=== PATIENT | male | born 1955 | race Caucasian/White ===

== ENCOUNTER 2021-03-03 16:07 | Inpatient (IN) | payer OTHER ==
[2021-03-03] VITALS (13 sets, daily range): BP systolic 112–217; BP diastolic 74–146
[~2021-03-03] VITALS: Ht 152.4 cm; Wt 94.8 kg
[2021-03-03 16:26] LABS: ABSOLUTE BASOPHILS 0.1 thou/uL (0.0-0.2); ABSOLUTE EOSINOPHILS 0.2 thou/uL (0.0-0.7); ABSOLUTE LYMPHOCYTES 2.4 thou/uL (0.8-5.3); ABSOLUTE MONOCYTES 0.8 thou/uL (0.0-1.2); ABSOLUTE NEUTROPHILS 5.9 thou/uL (1.6-8.1); BASOPHILS 1.1 %; EOSINOPHILS 1.7 %; HEMATOCRIT 49.4 % (42.0-52.0); HEMOGLOBIN 17.1 gm/dL (14.0-18.0); LYMPHOCYTES 25.4 %; MCH 33.4 pg (26.0-34.0); MCHC 34.7 g/dL (28.0-37.0); MCV 96.4 fL (80.0-100.0); MONOCYTES 8.9 %; MPV 8.6 fl. (7.2-11.1); NUCLEATED RBCS 0 /100WBC; PLATELET COUNT* 191 thou/uL (150-400); POLYS 62.9 %; RBC 5.12 mil/uL (4.50-6.00); RDW-CV 13.9 % (10.5-14.5); WBC 9.4 thou/uL (4.0-11.0)
[2021-03-03 16:36] LABS: CALCIUM 9.9 mg/dL (8.5-10.1); CREATININE 1.3 mg/dL (0.6-1.3); POTASSIUM 3.7 mmol/L (3.5-5.1)
[2021-03-03 16:51] LABS: ALBUMIN 3.9 g/dL (3.4-5.0); CK-MB MASS 8.8 ng/mL (<0.5-3.6); MAGNESIUM 2.2 mg/dL (1.8-2.4); TOTAL BILIRUBIN 0.8 mg/dL (<0.1-1.0); TOTAL PROTEIN 8.5 g/dL (6.4-8.2)
[2021-03-04] VITALS (7 sets, daily range): BP systolic 126–155; BP diastolic 65–97
--- NOTE | 2021-03-04 12:15 | CARD ---
[address] [address] CARDIAC CATH REPORT Name: DERRELL AGUIAR Room: [address] ADM IN .R.#: [id number] Admission: 03/03/21 Attend Phys: Derrell Whitaker MD Discharge: Date of : 59 Report #: [id number] THIS REPORT FOR: cc: FAM - No family physician/PCP FAM - No family physician/PCP Mateus Ayala MD [facility] ~ APPROVED REPORT Study performed: 03/03/2021 16:14:55 Patient Details Patient Status: ED Room #: The patient is a 65 year-old male Event Personnel Mateus Ayala Bulking Machine Operator, Derrell Whitaker Filter Cleaner, Adrienne Keith RN Supervisor Industrial Arts Education, Melissa Park, Lita Tse RN microsoft application developer Performed Left Heart Cath w/or w/o Coronaries [id number] [facility] [address] w/wo Plasty Addl BR OM [address] w/wo Plasty Single RCA 109274 Hemostasis w/ Angioseal Indication STEMI Risk Factors Obesity, Hypertension Admission/Lab Medications/Medications given during procedure Lidocaine Subcut 20 ml, Angiomax IV 15 ml, Angiomax IV 32.9 ml per hr, Atropine IV 0.5 ml, Adenosine IC 150 mcg, Aspirin PO 162 mg, Effient PO 60 mg Procedure Narrative The patient was brought emergently to the Cardiac Catheterization Laboratory and was prepped and draped in a sterile manner. The right femoral was infiltrated with 2% Lidocaine subcutaneous anesthesia. IV conscious sedation was used throughout procedure with appropriate monitoring and was performed in the presence of a registered nurse who was an independent trained observer other than the physician performing the procedure. A [place] 6 [place] [address] CARDIAC CATH REPORT Name: DERRELL AGUIAR Room: [address] IN [facility]#: [id number] Admission: 03/03/21 Attend Phys: Derrell Whitaker MD Discharge: Date of : 59 Report #: [id number] the right femoral artery. Coronary angiography was performed using coronary diagnostic catheters. The right coronary system was accessed and visualized with a Diagnostic JR4 6Fr catheter. The left coronary system was accessed and visualized with a Diagnostic JL4 6Fr catheter. The left ventricle was accessed and visualized with a Diagnostic JR4 6Fr catheter. Left ventricular/Aortic Valve gradient assessed via catheter pullback. Pre-demployment femoral angiogram was performed . Closure device was deployed with a 6 Fr Angioseal. The patient tolerated the procedure well and there were no complications associated with the procedure. There was no hematoma. Intraoperative Conscious Sedation Sedation start time: 1640 Case end Time: 1828 Fluoro Time: 42.6 minutes Dose: DAP 547207 cGycm2 6455.73 mGy Contrast Type and Amount: Visipaque 395 mL Coronary Angiography The patient's coronary anatomy is right dominant. Diagnostic Cath Left Main 0% narrowing LAD 90% irregular proximalmid LAD stenosis with collaterals from the LAD to the distal circumflex Circumflex 40% proximal narrowing with 100% chronic total occlusion of the proximal portion of the prominent first marginal branch of the circumflex Right Coronary Large dominant vessel with 90% distal stenosis and local thrombus at the site Hemodynamics The aortic pressure is 179/103 mmHg with a mean of 99 mmHg. The left ventricular pressure is 154/30 mmHg with a mean of mmHg. The left ventricular end diastolic pressure is 36 mmHg. There was no gradient across the aortic valve upon pullback. PCI Technique Lesion Anticoagulation was achieved with Angiomax. Percutaneous coronary intervention was performed on the distal right coronary artery. The lesion stenosis prior to intervention was 95% with NIKA 2 flow. A 6F JR 4.0 Guide Catheter was used to engage the Right ostium. A IG: BMW 190cm Interventional Guidewire was used to cross the [place] [address] CARDIAC CATH REPORT Name: DERRELL AGUIAR Room: [address] IN [facility]#: [id number] Admission: 03/03/21 Attend Phys: Derrell Whitaker MD Discharge: Date of : 59 Report #: [id number] A Balloon catheter Trek RX 2.5 X 12 was inserted and inflated up to 12.00atm for 13seconds. Additional Inflation: 14.00atm for 12seconds. Additional Inflation: 14.00atm for 13seconds. STENT DEPLOYMENT A drug-eluting stent [place] RX Stent 2.03V06ms was inserted and inflated up to 12.00atm for 12seconds. Additional Inflation: 14.00atm for 10seconds. Final angiography reveals 10 % stenosis with NIKA 3 flow. COMMENTS After PCI to the apparent culprit distal right coronary lesion, we elected to proceed with PCI of the circumflex as there was a question of concomitant acute occlusion of the first marginal branch. PCI Technique Lesion 2 Percutaneous Coronary Intervention was performed on the first obtuse marginal branch segment. The lesion stenosis prior to intervention was 100% with NIKA 0 flow. A 6F XB LAD 3.5 Guide Catheter was used to engage the Left ostium. A IG: BMW 300cm Interventional Guidewire was used to cross the lesion. Balloon Dilation A Balloon catheter Mini Trek RX 1.5 X 12 was inserted and inflated up to 14.00atm for 15seconds. Additional Inflation: 14.00atm for 8seconds. Additional Inflation: 14.00atm for 9seconds. A Balloon Catheter Mini Trek RX 2.0x 12 was inserted and inflated up to 8atm for 12 seconds. additional Inflation: 10atm for 7 seconds. Additional Inflation: 12 bipin for 8 seconds. Stent Deployment A drug-eluting stent [place] RX Stent 2.0X30mm was inserted and inflated up to 8.00atm for 16seconds. Additional Inflation: 8.00atm for 17seconds. A Drug Eluting Stent Robi RX Stent 2.0X12mm was inserted and inflated up to 8 bipin for 11 seconds. Additional Inflation: 12 bipin for 11 seconds. Additional Inflation: 14 bipin for 9 seconds. Final angiography reveals 10 % stenosis with NIKA 3 flow. Comments We were able to traverse the segment of chronic total occlusion of [facility] [address] [place] [address] CARDIAC CATH REPORT Name: COSMEDERRELL Cowart Room: [address] IN M.R.#: [id number] Admission: 03/03/21 Attend Phys: Derrell Whitaker MD Discharge: Date of : 59 Report #: [id number] the first marginal branch of the circumflex with a Fielder XT wire, utilizing a fine cross support catheter positioned just proximal to the AUTOMATIC FOLDER SEAMER. After advancing the fine cross catheter beyond the AUTOMATIC FOLDER SEAMER over the Fielder XT wire, the Fielder XT was replaced with a long BMW wire and we proceeded with sequential dilatations and deployment of 2 drug-eluting stents in this vessel. Conclusion 1. Acute inferior wall STEMI 2. Severe multivessel coronary artery disease characterized by the following: A 95% distal right coronary stenosis with local thrombus at the site and NIKA II flow to the distal vessel B 90% calcified irregular proximalmid LAD stenosis with collaterals from the distal LAD to the circumflex C 40% proximal circumflex narrowing with 100% chronic total occlusion of the first marginal branch of the circumflex with some collateral filling of the distal circumflex from the LAD 3. Moderate systemic systolic hypertension with severe elevation of left ventricular end-diastolic pressure at rest 4. Successful PCI with deployment of a drug-eluting stent at the site of 95% distal right coronary occlusion with 10% residual narrowing and NIKA-3 flow the distal vessel 5. Successful recanalization of the 100% chronic total occlusion of the first marginal branch of the nondominant circumflex with 10% residual narrowing and NIKA-3 flow to the distal circulation Recommendations Cardiac Risk Reduction Program Aggressive Medical Therapy Medications Administered Aspirin (any) Prasugrel Angiomax infusion was continued post procedurally [place] 6 [place] [address] CARDIAC CATH REPORT Name: DERRELL AGUIAR Sofya Room: [facility]- ADM IN M.R.#: [id number] Admission: 03/03/21 Attend Phys: Derrell Whitaker MD Discharge: Date of : 59 Report #: [id number] Diagnostic Cath Approved by: Derrell Whitaker MD Date/Time: 03/04/2021 12:10:29 <ELECTRONICALLY SIGNED> By: Mateus Ayala MD, FACC 03/04/21 1215 121 1215Mateus Ayala MD, FACC /INF
--- NOTE | 2021-03-04 12:27 | H ---
[address] [address] HISTORY AND PHYSICAL Name: COSMEDERRELL Sofya Room: [address] ADM IN M.R.#: [id number] Admission: 03/03/21 Attend Phys: Derrell Whitaker MD Discharge: Date of : 59 Report #: [id number] THIS REPORT FOR: cc: FAM - No family physician/PCP FAM - No family physician/PCP Mateus Ayala MD [facility] ~ ADMIT DATE: 03/03/2021 ADMITTING HISTORY AND PHYSICAL HISTORY OF PRESENT ILLNESS: The patient is a pleasant 65-year-old male with a history of hypertension. He developed chest discomfort last evening which waned. There was recrudescence today and he has had waxing and waning discomfort throughout the day. He ultimately sought assistance in the [facility] after transfer by EMS. EKG in the field suggested acute inferior injury and that is corroborated by the EKG in the ER, which reveals acute inferior wall injury. This patient has been admitted to bed after morphine. He has received aspirin and morphine. The only risk factor he describes is hypertension, which has gone untreated. He denies awareness of hyperlipidemia. Denies cigarette smoking. There is no known peripheral vascular disease or diabetes. PAST MEDICAL HISTORY: Remarkable for hypertension and mild weight excess. SOCIAL HISTORY: He is a nonsmoker. PHYSICAL EXAMINATION: GENERAL: Reveals a modestly distressed middle-aged male. VITAL SIGNS: Blood pressure is 140/70, pulse rate is 68, respirations are 18 per minute. NECK: Jugular venous pressure is normal. CHEST: Clear. CARDIAC: Reveals normal first and second heart sounds with a question of S4 gallop. ABDOMEN: Modestly obese and nontender. EXTREMITIES: Without edema with intact femoral, pedal and radial pulses. LABORATORY DATA: EKG reveals acute inferior wall injury with sinus rhythm. IMPRESSION: 1. Acute inferior wall ST segment elevation myocardial infarction. 2. Hypertension. 3. [place] [address] HISTORY AND PHYSICAL Name: DERRELL AGUIAR Room: [address]#: [id number] Admission: 03/03/21 Attend Phys: Derrell Whitaker MD Discharge: Date of : 59 Report #: [id number] RECOMMENDATIONS: Emergent cardiac catheterization with strong consideration of PCI. This has been discussed with the patient and we will plan to proceed emergently. Critical care time is 30 minutes from 13:55-14:25 on 03/03/2021. <ELECTRONICALLY SIGNED> By: Mateus Ayala MD, FACC 03/04/21 1227 1525 1604Jonic Ayala MD, FACC /nt
[2021-03-04 13:23] LABS: HEMATOCRIT 48.2 % (42.0-52.0); HEMOGLOBIN 16.7 gm/dL (14.0-18.0); MCH 33.6 pg (26.0-34.0); MCHC 34.6 g/dL (28.0-37.0); MCV 97.1 fL (80.0-100.0); MPV 8.9 fl. (7.2-11.1); RBC 4.96 mil/uL (4.50-6.00); RDW-CV 13.6 % (10.5-14.5); WBC 9.9 thou/uL (4.0-11.0)
[2021-03-04 13:33] LABS: ALBUMIN 3.1 g/dL (3.4-5.0); ALKALINE PHOSPHATASE 76 U/L (46-116); ANION GAP 9 mmol/L (7-16); BUN 13 mg/dL (7-18); CALCIUM 9.2 mg/dL (8.5-10.1); CHLORIDE 104 mmol/L (98-107); CHOLESTEROL 254 mg/dL (<200); CO2 24 mmol/L (21-32); CREATININE 1.1 mg/dL (0.6-1.3); GLUCOSE 132 mg/dL (70-99); HDL CHOLESTEROL 59 mg/dL (>40); LDL CHOLESTEROL 162 mg/dL (<100); POTASSIUM 3.7 mmol/L (3.5-5.1); SGOT 108 U/L (15-37); SGPT 40 U/L (30-65); SODIUM 137 mmol/L (136-145); TC:HDL 4.3 Ratio (Not establshd); TOTAL PROTEIN 7.2 g/dL (6.4-8.2); TRIGLYCERIDE 165 mg/dL (<150); VLDL 33 mg/dL (<40)
[2021-03-04 13:39] LABS: SERUM ASSESSMENT Clear
--- NOTE | 2021-03-04 15:19 | EKG ---
[place] [address] ELECTROCARDIOGRAM REPORT Name: DERRELL AGUIAR Room: [address] IN M.R.#: [id number] Admission: 03/03/21 Attend Phys: Derrell Whitaker, Discharge: Date of : 59 Date of Service: 03/03/21 1606 Report #: [id number] THIS REPORT FOR: //name// [facility] ED Test Date: 2021-03-03 Test Time: 16:06:40 Pat Name: DERRELL AGUIAR Department: Room: [facility] Gender: M Bottoming Room Supervisor: ROBI : 1955 Requested By: Silvino Laureano Order Number: [id number] MD: Derrell Whitaker Measurements Intervals [place] Rate: 81 P: 60 ND: 150 QRS: 54 QRSD: 113 T: 113 QT: 342 QTc: 397 Interpretive Statements Sinus rhythm Possible left atrial enlargement Inferior infarct, acute (RCA) Probable RV involvement, suggest recording right precordial leads No previous ECG available for comparison Electronically Signed On 03-04-2021 15:19:36 SKIN LIFTER [employer]ON by Derrell Whitaker [email or web address] <ELECTRONICALLY SIGNED> By: Derrell Whitaker MD, FACC 03/04/21 1519 1606 1606 Derrell Whitaker MD, FAC /EPI
--- NOTE | 2021-03-04 15:24 | EKG ---
[place] [address] ELECTROCARDIOGRAM REPORT Name: OSORIO AGUIAR Room: [address] IN .R.#: [id number] Admission: 03/03/21 Attend Phys: Osorio Whitaker, Discharge: Date of : 59 Date of Service: 03/04/21 0440 Report #: [id number] THIS REPORT FOR: //name// [facility] Test Date: 2021-03-04 Test Time: 04:40:03 Pat Name: OSORIO AGUIAR Department: Room: [facility] Gender: M Occasional Babysitter: [id number] : 1955 Requested By: Osorio Whitaker Order Number: [id number] Reading MD: Osorio Whitaker Measurements Intervals [place] Rate: 63 P: 35 CO: 152 QRS: 9 QRSD: 106 T: -65 QT: 486 QTc: 498 Interpretive Statements Sinus rhythm Inferior infarct, recent Lateral leads are also involved Baseline wander in lead(s) V2,V3 Compared to ECG 03/03/2021 16:06:40 No significant changes Electronically Signed On 03-04-2021 15:24:23 FEDERAL AGENT by Osorio Whitaker [email or web address] <ELECTRONICALLY SIGNED> By: Osorio Whitaker MD, FACC 03/04/21 1524 0440 0440 Osorio Whitaker MD, FACC /EPI
[2021-03-05 06:16] VITALS: BP 176/105
[2021-03-05 06:17] VITALS: BP 157/103
[2021-03-05 06:19] VITALS: BP 161/106
--- NOTE | 2021-03-05 11:09 | 2DMMODE ---
[place] [address] 2 D/M-MODE ECHOCARDIOGRAM Name: OSORIO AGUIAR Room: [address] IN [facility]#: [id number] Admission: 03/03/21 Attend Phys: Osorio Whitaker, Discharge: Date of : 59 Date of Service: 03/05/21 1108 Report #: [id number] THIS REPORT FOR: cc: FAM - No family physician/PCP FAM - No family physician/PCP Osorio Whitaker MD [facility] ~ APPROVED REPORT Study performed: 03/04/2021 16:17:17 EXAM: Comprehensive 2D, Doppler, and color-flow Echocardiogram Patient Location: In-Patient Room #: 008 Status: routine BSA: 2.08 HR: 68 bpm BP: 115/67 mmHg Rhythm: NSR Other Information Study Quality: Good Indications Acute MN 2D Dimensions IVSd: 11.31 (7-11mm) LVOT Diam: 20.80 (18-24mm) LVDd: 45.08 mm PWd: 13.19 (7-11mm) Ascending Ao: 36.32 (22-36mm) LVDs: 27.63 (25-40mm) Aortic Root: 34.76 mm Volumes Left Atrial Volume (Systole) LA ESV Index: 29.80 mL/m2 Aortic Valve AoV Peak Blayne.: 1.30 m/s AO Peak Gr.: 6.71 mmHg LVOT Max P.39 mmHg AO Mean Gr.: 3.97 mmHg LVOT Mean P.97 mmHg LVOT Max V: 1.05 m/s AO V2 VTI: 23.26 cm LVOT Mean V: 0.64 m/s MONIKA (VTI): 2.90 cm2 LVOT V1 VTI: 19.81 [place] [address] 2 D/M-MODE ECHOCARDIOGRAM Name: OSORIO AGUIAR Room: [address] IN ..#: [id number] Admission: 03/03/21 Attend Phys: Osorio Whitaker, Discharge: Date of : 59 Date of Service: 03/05/21 1108 Report #: [id number] Mitral Valve E/A Ratio: 1.32 MV Decel. Time: 157.47 ms MV E Max Blayne.: 0.91 m/s MV PHT: 45.67 ms MVA (PHT): 4.82 cm2 TDI E/Lateral E': 10.11 E/Medial E': 13.00 Medial E' Blayne.: 0.07 m/s Lateral E' Blayne.: 0.09 m/s Pulmonary Valve PV Peak Blayne.: 0.83 m/s PV Peak Gr.: 2.76 mmHg Left Ventricle The left ventricle is normal size. Hypokinesis noted in the basal inferior wall. There is normal left ventricular wall thickness. Left ventricular systolic function is preserved. LVEF is 60-65%. The left ventricular diastolic function is normal. Right Ventricle The right ventricle is normal size. The right ventricular systolic function is normal. Atria The left atrium size is normal. The right atrium size is normal. Aortic Valve The aortic valve is normal in structure. No aortic regurgitation is present. There is no aortic valvular stenosis. Mitral Valve The mitral valve is normal in structure. Mild mitral regurgitation. No evidence of mitral valve stenosis. Tricuspid Valve The tricuspid valve is normal in structure. Unable to assess PA pressure. Trace tricuspid regurgitation. Pulmonic Valve The pulmonary valve is normal in structure. Trace pulmonic regurgitation[place] [address] 2 D/M-MODE ECHOCARDIOGRAM Name: OSORIO AGUIAR Room: [address]#: [id number] Admission: 03/03/21 Attend Phys: Osorio Whitaker, Discharge: Date of : 59 Date of Service: 03/05/21 1108 Report #: [id number] The aortic root is normal in size. IVC is normal in size and collapses >50% with inspiration. Pericardium There is no pericardial effusion. <Conclusion> The left ventricle is normal size. There is normal left ventricular wall thickness. Left ventricular systolic function is preserved. LVEF is 60-65%. The left ventricular diastolic function is normal. Hypokinesis noted in the basal inferior wall. Mild mitral regurgitation. Trace pulmonic regurgitation. IVC is normal in size and collapses >50% with inspiration. <ELECTRONICALLY SIGNED> By: Osorio Whitaker MD, FACC 03/05/21 1108 1108 1108 Osorio Whitaker MD, FACC /INF
[2021-03-05] MEDS ORDERED: BAYER CHEWABLE81 MG PO (11:21)
[2021-03-05] MEDS ORDERED: LIPITOR 40 MG T40 M1 PO (11:21)
[2021-03-05] MEDS ORDERED: EFFIENT10 MG PO (11:21)
[2021-03-05] MEDS ORDERED: METOPROLOL TART25 MG PO (11:21)
[2021-03-05 11:33] VITALS: BP 161/106
[2021-03-05 11:43] VITALS: BP 150/97
[2021-03-05 12:35] VITALS: BP 161/106
--- NOTE | 2021-03-06 08:12 | D ---
[address] [address] DISCHARGE SUMMARY Name: OSORIO AGUIAR Room: [address] IN M.R.#: [id number] Admission: 03/03/21 Attend Phys: Osorio Whitaker MD Discharge: 03/05/21 Date of : 59 Report #: [id number] THIS REPORT FOR: cc: FAM - No family physician/PCP FAM - No family physician/PCP Osorio Whitaker MD [facility] DATE OF DISCHARGE: 03/05/2021 DISCHARGE DIAGNOSES: 1. ST elevation myocardial infarction. 2. Hypertension. 3. Dyslipidemia. DISCHARGE PROCEDURES: 1. Left heart catheterization. 2. Coronary angiography. 3. Percutaneous coronary intervention to the distal right coronary artery and first obtuse marginal branch. 4. Echocardiogram. HOSPITAL COURSE: The patient was admitted to the hospital on 03/03/2021, with acute ST elevation myocardial infarction, indicating inferior wall myocardial infarction. On catheterization, she was found to have critical 99% stenosis of the distal right coronary artery with thrombus. The patient underwent drug-eluting stent placement with excellent result. The patient also was noted to have a critically occluded large branch first obtuse marginal branch, for which she also had percutaneous coronary intervention with the additional placement of 2 more drug-eluting stents with excellent result. The patient has preserved left ventricular systolic function by echocardiogram with normal diastolic function. Cardiac risk factors treated in the hospital were hypertension and dyslipidemia. DISPOSITION: The patient will follow up in 2 weeks in the Cardiology office. There is also residual disease in the LAD for which she will be scheduled for a staged procedure. <ELECTRONICALLY SIGNED> By: Osorio Whitaker MD, FACC 03/06/21 0812 1023 1047Osorio Whitaker MD, FACC /nt
== END 2021-03-05 12:00 | disposition home or self-care (01) | DRG 247 ==
LOC: M.ERS 16:07 → M.CL 16:07 → M.TBA-CV 18:39 → M.ICU 19:41
PROVIDERS: Family Medicine; ADMIT Internal Medicine Cardiovascular Disease; ATTEND Internal Medicine Cardiovascular Disease
PROC: 4A023N7 Measurement of Cardiac Sampling and Pressure, Left Heart, Percutaneous Approach (ICD-10-PCS; principal; 2021-03-03)
PROC: 027136Z Dilation of Coronary Artery, Two Arteries with Three Drug-eluting Intraluminal Devices, Percutaneous Approach (ICD-10-PCS; principal; 2021-03-03)
PROC: B211YZZ Fluoroscopy of Multiple Coronary Arteries using Other Contrast (ICD-10-PCS; principal; 2021-03-03)
PROC: B41FYZZ Fluoroscopy of Right Lower Extremity Arteries using Other Contrast (ICD-10-PCS; principal; 2021-03-03)
DX: I21.19 ST elevation (STEMI) myocardial infarction involving other coronary artery of inferior wall (principal); I10 Essential (primary) hypertension; E66.01 Morbid (severe) obesity due to excess calories; E78.5 Hyperlipidemia, unspecified; I25.10 Atherosclerotic heart disease of native coronary artery without angina pectoris; Z20.822 Contact with and (suspected) exposure to COVID-19; Z68.41 Body mass index [BMI] 40.0-44.9, adult

== ENCOUNTER 2021-03-16 09:52 | Observation (INO) | payer OTHER ==
[2021-03-16] VITALS (17 sets, daily range): BP systolic 125–168; BP diastolic 56–98
[~2021-03-16] VITALS: Ht 172.7 cm; Wt 94.8 kg
[~2021-03-16 09:52] MED LIST: BAYER CHEWABLE81 MG PO; EFFIENT10 MG PO; LIPITOR 40 MG T40 M1 PO; METOPROLOL TART25 MG PO
[2021-03-16 10:26] LABS: ABSOLUTE BASOPHILS 0.1 thou/uL (0.0-0.2); ABSOLUTE EOSINOPHILS 0.2 thou/uL (0.0-0.7); ABSOLUTE MONOCYTES 0.6 thou/uL (0.0-1.2); ABSOLUTE NEUTROPHILS 4.9 thou/uL (1.6-8.1); BASOPHILS 1.1 %; EOSINOPHILS 2.2 %; HEMATOCRIT 48.2 % (42.0-52.0); HEMOGLOBIN 16.6 gm/dL (14.0-18.0); LYMPHOCYTES 25.6 %; MCH 33.2 pg (26.0-34.0); MCHC 34.5 g/dL (28.0-37.0); MCV 96.2 fL (80.0-100.0); MONOCYTES 7.3 %; MPV 8.2 fl. (7.2-11.1); NUCLEATED RBCS 0 /100WBC; PLATELET COUNT* 241 thou/uL (150-400); POLYS 63.8 %; RBC 5.01 mil/uL (4.50-6.00); RDW-CV 12.9 % (10.5-14.5); WBC 7.7 thou/uL (4.0-11.0)
[2021-03-16 10:42] LABS: CALCIUM 9.2 mg/dL (8.5-10.1); CREATININE 1.2 mg/dL (0.6-1.3); POTASSIUM 4.1 mmol/L (3.5-5.1)
[2021-03-16 10:46] LABS: ALBUMIN 3.8 g/dL (3.4-5.0); TOTAL BILIRUBIN 0.8 mg/dL (<0.1-1.0)
--- NOTE | 2021-03-16 15:19 | CARD ---
[address] [address] CARDIAC CATH REPORT Name: DERRELL AGUIAR Room: [address] M.R.#: [id number] Admission: 03/16/21 Attend Phys: Derrell Whitaker MD Discharge: Date of : 59 Report #: [id number] THIS REPORT FOR: cc: Derrell Whitaker MD [facility] Derrell Whitaker MD [facility] Mateus Ayala MD [facility] ~ APPROVED REPORT Study performed: 03/16/2021 12:19:08 Patient Details Patient Status: ED Room #: The patient is a 65 year-old male 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 Manga Artist, Derrell Whitaker Horse Identifier, Mateus Ayala Fueler, Lita Tse RN RN, Anila Wright RTR Monitor,Hortensia May RTR Scrub Procedures Performed Art Access - R femoral artery Left Heart Cath w/or w/o Coronaries ISIDRO Place w/wo Plasty Single LAD Hemostasis w/ Angioseal Indication Unstable angina Risk Factors Obesity, Hypercholesterolemia, Hypertension Previous Procedures/Diagnoses Previous PCI, Previous CO Admission/Lab Medications/Medications given during procedure Oxygen Nasal cannula 2 l per min, 0.9% Sodium Chloride IV 75 ml per hr, Lidocaine Subcut 15 ml, Angiomax IV 14 ml, Angiomax Drip IV 32.6 ml per hr, 0.9% Sodium Chloride IV 100 ml per hr, 0.9% Sodium Chloride IV 1200 ml per hr, Atropine IV 0.5 mg, Atropine IV 0.5 mg, Solumedrol IV 125 mg, Dopamine IV 5 mcg per kg per min, Dopamine IV 10 mcg per kg per min, 0.9% Sodium Chloride IV 150 ml per hr, Effient PO 30 mg Procedure Narrative The patient was brought emergently to [place] [address] CARDIAC CATH REPORT Name: DERRELL AGUIAR Room: [address]#: [id number] Admission: 03/16/21 Attend Phys: Derrell Whitaker MD Discharge: Date of : 59 Report #: [id number] Laboratory and was prepped and draped in a sterile manner. The right femoral was infiltrated with 2% Lidocaine subcutaneous anesthesia. IV conscious sedation was used throughout procedure with appropriate monitoring and was performed in the presence of a registered nurse who was an independent trained observer other than the physician performing the procedure. A [place] 6 FR sheath was inserted into the right femoral artery. Coronary angiography was performed using coronary diagnostic catheters. The right coronary system was accessed and visualized with a Diagnostic 6 Fr JR 4 catheter. The left coronary system was accessed and visualized with a XB LAD 3.5 with sideholes catheter. The left ventricle was accessed and visualized with a Diagnostic 6 Fr JR 4 catheter. Left ventricular/Aortic Valve gradient assessed via catheter pullback. Pre-demployment femoral angiogram was performed . Closure device was deployed with a Fr Angioseal STS 6Fr. The patient tolerated the procedure well and there were no complications associated with the procedure. There was no hematoma. Intraoperative Conscious Sedation Sedation start time: 12:47 Case end Time: 13:49 Fentanyl 25 mcg Versed 2 mg Fluoro Time: 12.3 minutes Dose: DAP [id number] cGycm2 2248 mGy Contrast Type and Amount: Visipaque 140 mL Coronary Angiography The patient's coronary anatomy is right dominant. Diagnostic Cath Left Main 0% narrowing LAD 90% irregular proximalmid LAD stenosis with local thrombus suggested Circumflex Widely patent mid circumflex stent with total occlusion of the first marginal branch with left to left collaterals filling that distal marginal branch from the LAD Right Coronary Large dominant vessel with a widely patent distal stent Left Ventriculography Left Ventriculography was not performed. Hemodynamics The aortic pressure is 128/74 mmHg with a mean of 98 [place] [address] CARDIAC CATH REPORT Name: DERRELL AGUIAR Room: [address]#: [id number] Admission: 03/16/21 Attend Phys: Derrell Whitaker MD Discharge: Date of : 59 Report #: [id number] ventricular pressure is 125/8 mmHg with a mean of mmHg. The left ventricular end diastolic pressure is 33 mmHg. PCI Technique Lesion Anticoagulation was achieved with Angiomax Drip. Patient was preloaded with Angiomax IV 14 ml. Percutaneous coronary intervention was performed on the proximalmid left anterior descending artery segment. The lesion stenosis prior to intervention was 90% with NIKA 3 flow. A 6 Hebrew XB LAD 3.5 with sideholes Guide Catheter was used to engage the left ostium. A IG: BMW 190cm Interventional Guidewire was used to cross the lesion. BALLOON DILATION A Balloon catheter Trek RX 2.5 X 15 was inserted and inflated up to 8.00atm for 10seconds. Additional Inflation: 14.00atm for 11seconds. STENT DEPLOYMENT A drug-eluting stent Quinn RX Stent 2.5X30mm was inserted and inflated up to 12.00atm for 11seconds. Additional Inflation: 12.00atm for 7seconds. 2.0 x 8 mm Quinn stent was deployed covering the distal margin of the 2.5 x 30 mm stent and inflated to 10 to 14 bipin POST STENT DEPLOYMENT BALLOON DILATION A Balloon catheter NC Trek RX 2.75 X 12 was inserted and inflated up to 10.00atm for 5seconds. Additional Inflation: 14.00atm for 8seconds. Final angiography reveals 10 % stenosis with NIKA 3 flow. COMMENTS There was transient slow flow in the LAD after postdilatation of the LAD stent with a 2.75 x 12 NC trek. This was accompanied by a vagal response with hypotension and bradycardia. Symptoms resolved after administration of fluids 1 mg of atropine and IV dopamine at 5 - 10 mcg/kg/min. The transitory slow flow remitted and there was NIKA-3 flow to the distal circulation at the end of the procedure. Conclusion 1. Significant coronary artery disease characterized by the following: A 90% irregular proximalmid LAD stenosis with local thrombus [facility] [address] [place] [address] CARDIAC CATH REPORT Name: DERRELL AGUIAR Room: [address]#: [id number] Admission: 03/16/21 Attend Phys: Derrell Whitaker MD Discharge: Date of : 59 Report #: [id number] suggested at the site, B nondominant circumflex with a widely patent mid vessel stent and total occlusion of the first marginal branch with left to left collaterals filling that marginal branch C dominant right coronary with a widely patent distal stent 2. Severe elevation of left ventricular end-diastolic pressure at rest 3. Successful PCI with deployment of sequential drug-eluting stents in the proximalmid LAD with 10% residual narrowing and NIKA-3 flow to the distal vessel Recommendations Cardiac Risk Reduction Program Aggressive Medical Therapy Medications Administered Prasugrel Diagnostic Cath Approved by: Derrell Whitaker MD Date/Time: 03/16/2021 15:09:44 <ELECTRONICALLY SIGNED> By: Mateus Ayala MD, FACC 03/16/21 1519 18 1519Mateus Ayala MD, FACC /INF
--- NOTE | 2021-03-16 18:10 | NUR ---
PT ADMITTED TO ROOM 203 VIA BED FROM ANIMAL HEALTH TECHNICIAN AT APPROXIMATELY 1510. REPORT RECEIVED FROM CHERRI GARRETT. PT ORIENTED TO ROOM AND CALL LIGHT. ADMISSION ASSESSMENT AND HISTORY CHARTED. POST CARDIAC CATH ASSESSMENT AND VITALS CHARTED. ACCESS INTO RIGHT GROIN-NO HEMATOMA NOTED. PT OFF BEDREST AT 1999. PT INSTRUCTED ON IMMOBILIZATION AND COMMUNICATES UNDERSTANDING. A&0X4, DENIES ANY PAIN OR SHORTNESS OF BREATH. TRACING SR ON THE BRIDGE CLUB MANAGER. ON RA SAT MID 90'S. PROBABLE DISCHARGE HOME TOMORROW 03/17. MEDS PER MAY. HOURLY ROUNDING OBSERVED. BED IN LOW POSITION. CALL LIGHT WITHIN REACH. WILL CONTINUE PLAN OF CARE.
[2021-03-17] VITALS: BP 134/83
[2021-03-17 04:00] VITALS: BP 134/84
--- NOTE | 2021-03-17 06:30 | NUR ---
SLEPT WELL THIS NIGHT. RT GROIN SITE CLEAN AND INTACT. DENIES ANY DISCOMFORT. TELEMETRY SHOWING SR.
[2021-03-17 07:29] LABS: HEMOGLOBIN 15.8 gm/dL (14.0-18.0); MCH 32.9 pg (26.0-34.0); MCHC 34.4 g/dL (28.0-37.0); MCV 95.4 fL (80.0-100.0); MPV 8.4 fl. (7.2-11.1); RBC 4.82 mil/uL (4.50-6.00); WBC 13.5 thou/uL (4.0-11.0)
[2021-03-17 08:26] LABS: ALBUMIN 3.3 g/dL (3.4-5.0); CALCIUM 9.1 mg/dL (8.5-10.1); CREATININE 1.1 mg/dL (0.6-1.3); TOTAL BILIRUBIN 0.6 mg/dL (<0.1-1.0); TOTAL PROTEIN 7.5 g/dL (6.4-8.2)
[2021-03-17 08:48] VITALS: BP 133/85
--- NOTE | 2021-03-17 09:23 | EKG ---
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
--- NOTE | 2021-03-17 09:23 | EKG ---
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: BRITTANY : 1955 Requested By: Rashad Mckeon Order Number: [id number] MD: Mateus Ayala Measurements Intervals [place] Rate: 54 P: 23 [place]: 164 QRS: -11 QRSD: 100 T: -24 QT: 412 QTc: 391 Interpretive Statements Sinus rhythm Probable left atrial enlargement Inferior infarct, age indeterminate Compared to ECG 03/04/2021 04:40:03 No significant changes Electronically Signed On 03-17-2021 9:22:53 ENROLLMENT NURSE by Mateus Ayala [email or web address] <ELECTRONICALLY SIGNED> By: Mateus Ayala MD, FAC 03/17/21 0922 1004 1004 Mateus Ayala MD, [facility] /EPI
--- NOTE | 2021-03-17 09:30 | EKG ---
[place] [address] ELECTROCARDIOGRAM REPORT Name: DERRELL AGUIAR Room: [address]#: [id number] Admission: 03/16/21 Attend Phys: Derrell Whitaker, Discharge: Date of : 59 Date of Service: 03/17/21 0537 Report #: [id number] THIS REPORT FOR: //name// [facility] Test Date: 2021-03-17 Test Time: 05:37:54 Pat Name: DERRELL AGUIAR Department: Room: 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: STEVE : 1955 Requested By: Derrell Whitaker Order Number: [id number] Reading MD: Mateus Ayala Measurements Intervals [place] Rate: 63 P: 65 CT: 150 QRS: 46 QRSD: 101 T: 113 QT: 454 QTc: 465 Interpretive Statements Sinus rhythm Abnormal T, consider ischemia, pavan-lateral leads Compared to ECG 03/16/2021 15:18:38 T-wave abnormality now present Possible ischemia now present Myocardial infarct finding no longer present Electronically Signed On 03-17-2021 9:30:21 LOCKS TENDER by Mateus Ayala [email or web address] <ELECTRONICALLY SIGNED> By: Mateus Ayala MD, [facility] 03/17/21 0930 0537 0537 Mateus Ayala MD, [facility] /EPI
[2021-03-17 12:07] VITALS: BP 133/85
--- NOTE | 2021-03-17 12:58 | NUR ---
ASSUMED PT CARE AT 0730. PT IS A&0X4, PLEASANT AND CONVERSATIONAL. ASSESSEMNT COMPLETED AND VSS. MEDICATIONS ADMINISTERED ORDERED. NEW ORDER TO DISCHARGE PT TO HOME. ORDERS REVIEWED WITH PT AND PT VERBALIZED UNDERSTANDING.HEART MONITOR REMOVED AND IV'S DC'D. ALL BELONGINGS WITH PT. PT'S RIDE HERE AT 1215, PT ACCOMPANIED BY NURSING STAFF, VIA WC TO MAIN ENTRANCE TO EXIT BY CAR.
--- NOTE | 2021-03-20 11:41 | D ---
[facility] [address] [place] [address] DISCHARGE SUMMARY Name: OSORIO AGUIAR Room: [address] Cely Gramajo#: [id number] Admission: 03/16/21 Attend Phys: Osorio Whitaker MD Discharge: 03/17/21 Date of : 59 Report #: [id number] THIS REPORT FOR: cc: Osorio Whitaker MD [facility] Osorio Whitaker MD [facility] Osorio Whitaker MD [facility] ~ DATE OF DISCHARGE: 03/17/2021 DISCHARGE DIAGNOSES: 1. Unstable angina. 2. Coronary artery disease. 3. Hypertension. 4. Hyperlipidemia. PROCEDURES DURING HOSPITALIZATION: 1. Coronary angiography. 2. Left heart catheterization. 3. Percutaneous coronary intervention to the proximal to mid left anterior descending with drug-eluting stent placement. HOSPITAL COURSE: The patient was admitted through the Emergency Room with progressive ongoing chest discomfort. EKG showed sinus rhythm with T-wave inversion. The patient had recent PCI to his right coronary artery and circumflex coronary arteries. He was found to have 80% proximal to mid LAD stenosis. The patient underwent drug-eluting stent placement with excellent result. The patient tolerated the procedure without complication. The patient was observed overnight and is being discharged uneventfully. DISCHARGE MEDICATIONS: 1. Aspirin 81 mg daily. 2. Effient 10 mg daily. 3. Metoprolol 25 mg b.i.d. 4. Atorvastatin 40 mg daily. DISPOSITION: The patient to follow up with Cardiology office in approximately 4 weeks. <ELECTRONICALLY SIGNED> By: Osorio Whitaker MD, FACC 03/20/21 1141 0701 0706Michael Tonny Whitaker MD, FACC /nt
--- NOTE | 2021-03-20 11:41 | H ---
[place] [address] HISTORY AND PHYSICAL Name: DERRELL AGUIAR Room: [address] Cely Gramajo#: [id number] Admission: 03/16/21 Attend Phys: Derrell Whitaker MD Discharge: 03/17/21 Date of : 59 Report #: [id number] THIS REPORT FOR: cc: Derrell Whitaker MD [facility] Derrell Whitaker MD [facility] Derrell Whitaker MD [facility] ~ DATE OF SERVICE: 03/16/2021 CARDIOLOGY ADMISSION HISTORY AND PHYSICAL INDICATION: Unstable angina. HISTORY OF PRESENT ILLNESS: The patient is a 65-year-old gentleman with coronary artery disease. He had percutaneous coronary intervention to the distal right coronary artery and mid circumflex coronary artery on 03/03/2021. He had moderate disease in the proximal LAD, which was not stented at that time secondary to a lengthy procedure. In the interim, he continues to have exertional chest discomfort that has been progressive in nature. EKG shows sinus rhythm with T-wave inversion. The patient is being admitted for urgent coronary angiography and possible intervention. PAST MEDICAL HISTORY: 1. Hypertension. 2. Dyslipidemia. 3. Coronary artery disease with recent intervention as outlined above. SOCIAL HISTORY: The patient is a nonsmoker. HOME MEDICATIONS: Aspirin 81 mg daily, Effient 10 mg daily, metoprolol tartrate 25 mg b.i.d., atorvastatin 40 mg daily. ALLERGIES: None documented. REVIEW OF SYSTEMS: A 14-point review of systems positive for chest discomfort, dyspnea on exertion without orthopnea or paroxysmal nocturnal dyspnea and joint pain; otherwise, 14-point review of systems was unremarkable. PHYSICAL EXAMINATION: VITAL SIGNS: Blood pressure 168/98, pulse is 61 and regular. GENERAL: This is a pleasant gentleman who does not appear to be in acute distress. HEENT: Head is normocephalic, atraumatic. Extraocular muscles intact. Mucous membranes are moist. NECK: Shows no jugular venous distention. There are no carotid bruits. CHEST: Reveals clear lung paul without wheezes or rales. CARDIAC: Reveals a regular rhythm with normal S1 and S2[place] [address] HISTORY AND PHYSICAL Name: DERRELL AGUIAR Sofya Room: [address]#: [id number] Admission: 03/16/21 Attend Phys: Derrell Whitaker MD Discharge: 03/17/21 Date of : 59 Report #: [id number] gallop or murmur. ABDOMEN: Reveals normal bowel sounds. The abdomen is soft and nontender. EXTREMITIES: Show no edema. Peripheral pulses 2+ and palpable. SKIN: Dry. LABORATORY DATA: A 12-lead EKG shows sinus rhythm with T-wave inversion diffusely. Chest x-ray shows no acute cardiopulmonary abnormality. IMPRESSION AND RECOMMENDATIONS: 1. Progressive/unstable angina. Plan coronary angiography and probable coronary intervention pending results of those studies. Continue aspirin and Effient at this time. 2. Coronary artery disease. Continue dual antiplatelet therapy. The patient is status post percutaneous coronary intervention approximately 2 weeks ago. 3. Hypertension. We will adjust metoprolol as needed for improved blood pressure control. 4. Dyslipidemia. Continue atorvastatin 40 mg daily. Goal LDL 70 or less. <ELECTRONICALLY SIGNED> By: Derrell Whitaker MD, FACC 03/20/21 1141 1539 1609[facility] Whit[facility] MD, FACC /nt
== END 2021-03-17 12:15 | disposition home or self-care (01) ==
LOC: M.ERS 09:52 → M.TBA-ER 10:27 → M.2W 15:13
PROVIDERS: Emergency Medicine; ADMIT Internal Medicine Cardiovascular Disease; ATTEND Internal Medicine Cardiovascular Disease
DX: I25.110 Atherosclerotic heart disease of native coronary artery with unstable angina pectoris (principal); Z20.822 Contact with and (suspected) exposure to COVID-19; I10 Essential (primary) hypertension; E78.5 Hyperlipidemia, unspecified; Z79.82 Long term (current) use of aspirin; Z79.899 Other long term (current) drug therapy